=== PATIENT | female | born 1990 | race Caucasian/White ===

== ENCOUNTER 2018-04-01 15:41 | Emergency (ER) | payer MEDICAID ==
[~2018-04-01] VITALS: Ht 162.6 cm; Wt 56.7 kg
[2018-04-01 15:41] VITALS: BP 119/78
== END 2018-04-01 16:23 | disposition home or self-care (01) ==
LOC: ER 15:43
DX: S06.0X0A Concussion without loss of consciousness, initial encounter (principal); Z88.1 Allergy status to other antibiotic agents; Z60.2 Problems related to living alone; V49.49XA Driver injured in collision with other motor vehicles in traffic accident, initial encounter; Y93.89 Activity, other specified; Y92.410 Unspecified street and highway as the place of occurrence of the external cause; Y99.8 Other external cause status
CPT/HCPCS: A4606; Z7610